=== PATIENT | female | born 1965 | race Caucasian/White ===

== ENCOUNTER → 2020-11-10 | Day surgery (SDC) | payer OTHER ==
[~2020-11-10] MED LIST: GLUCOPHAGE XR500 M1 PO; MULTI-VITAMIN1 EACH PO; MYCOSTATIN CREA15 GM TOP; OZEMPIC0.25 MG/0. SQ; SERTRALINE HCL100 MG PO; SIMVASTATIN20 MG PO; SINGULAIR10 MG PO
== END | disposition home or self-care (01) ==
LOC: OR 08:09
PROVIDERS: Internal Medicine Gastroenterology
PROC: 0DJD8ZZ Inspection of Lower Intestinal Tract, Via Natural or Artificial Opening Endoscopic (ICD-10-PCS; principal; 2020-11-10 11:00)
DX: Z12.11 Encounter for screening for malignant neoplasm of colon (principal); K64.1 Second degree hemorrhoids; Q43.8 Other specified congenital malformations of intestine; K59.89 Other specified functional intestinal disorders; K58.9 Irritable bowel syndrome, unspecified; F41.9 Anxiety disorder, unspecified; F32.9 Major depressive disorder, single episode, unspecified; E11.9 Type 2 diabetes mellitus without complications; E66.8 Other obesity; Z68.34 Body mass index [BMI] 34.0-34.9, adult; Z20.822 Contact with and (suspected) exposure to COVID-19; Z79.899 Other long term (current) drug therapy; Z79.84 Long term (current) use of oral hypoglycemic drugs; Z88.8 Allergy status to other drugs, medicaments and biological substances
CPT/HCPCS: 82962; J7040